=== PATIENT | female | born 1940 | race Caucasian/White ===

== ENCOUNTER 2024-04-17 10:37 | Inpatient (IN) | payer MEDICARE, SELFPAY ==
[2024-04-17] VITALS (73 sets, daily range): BP systolic 37–155; BP diastolic 25–130; BMI 34.2
[2024-04-17 08:12] LABS: Glucose - Point of Care 124 mg/dl (70-99)
[2024-04-17 08:45] LABS: Urine Albumin 3+ (Neg - Trace); Urine Bilirubin Negative (Negative); Urine Character Clear (Clear); Urine Glucose Negative (Negative); Urine Ketone Trace (Negative); Urine Leukocyte 2+ (Negative); Urine Nitrite Negative (Negative); Urine Occult Blood 2+ (Negative); Urine Urobilinogen Negative (Neg - 1+)
[2024-04-17 08:50] LABS: INR 2.22; PT 25.1 Sec (11.4-14.6); Urine Color Yellow
[2024-04-17 08:51] LABS: APTT 46.6 Sec (23.4-35.0)
[2024-04-17 08:57] LABS: % Basophils 0.5 % (0-2); % Immature Granulocytes 0.8 % (0-0.5); % Lymphocytes 5.7 % (20.5-51.1); % Monocytes 6.8 % (1.7-9.3); % Neutrophils 86.2 % (42.2-75.2); Absolute Basophils 0.1 10^3/uL (0-0.2); Absolute Immature Granulocytes 0.1 10^3/uL (0-0.05); Absolute Lymphocytes 0.5 10^3/uL (1.2-3.4); Absolute Monocytes 0.6 10^3/uL (0.1-0.6); Absolute Neutrophils 7.8 10^3/uL (1.4-6.5); Hematocrit 37.1 % (37.0-47.0); Hemoglobin 11.2 g/dL (12.0-16.0); Mean Corp Hgb Conc. 30.2 g/dL (33.0-37.0); Mean Corpuscular Hgb 30.2 pg (27.0-31.0); Mean Platelet Volume 11.8 fL (7.4-10.4); Nucleated Red Blood Cells % 0.2 %; Platelet Count 133 10^3/uL (130-400); Red Blood Cell Count 3.71 10^6/uL (4.20-5.40); Red Cell Dist. Width 24.8 % (11.5-14.5); White Blood Cell Count 9.1 10^3/uL (4.8-10.8)
[2024-04-17] MEDS: NSS 1600 ML IV (09:00)
--- NOTE | 2024-04-17 09:12 | ED.GENMED ---
History of Present Illness
General
Chief Complaint: Blood Sugar Problem
Source: records, ambulance crew and residential
Exam Limitations: altered mental status
Time Seen by Provider: 04/17/24 08:57
Nursing documentation reviewed up to this point in time: agreed with
History of Present Illness
History of Present Illness:
83-year-old female with a past medical history of prior stroke, asthma/COPD with chronic respiratory failure, hypertension, hyperlipidemia, CHF, A-fib who presents to the emergency room from [facility]; presents via EMS for change in
mental status; was noted to have hypoglycemia in the field. Patient is unable to meaningfully participate in history as she is very lethargic and confused. According to EMS report on their arrival to rehab facility patient was lethargic
essentially unresponsive found to have blood glucose of 32 and was given D10 bolus with improvement. I spoke to the residential staff directly to obtain collateral history�apparently she had been there in late February and was discharged home in
early March, unfortunately required return visit to [facility] where she was hospitalized initially with COPD exacerbation apparently complicated by [place] requiring stent. She returned to [facility] 04/02 and since that time
has had multiple issues including case of bilateral lower leg cellulitis requiring treatment with Keflex�she is currently on Keflex and is set to take this antibiotic until 04/22/2024. Apparently since 04/13/2024 her blood pressures have been running
low and residential has been holding blood pressure medications due to this. Apparently on 04/16/2024 she had syncopal event when they stood her up to get her daily weight. Later in the day she had a minor slip from a seated position onto her
bottom no apparent injuries or head strike. Today when they went to do her morning care she was noted to be hypotensive, bradycardic, lethargic and EMS was called to bring her to the hospital. Nursing staff does note that she had a brief visit
home on 04/14/2024 during which she was apparently off of her normal oxygen. Reviewed medication list she does have history of A-fib and is on Eliquis. I spoke to the patient's daughter who is at bedside and she confirmed history as above. She
confirmed that normally patient is awake and oriented x 3 and communicative. Patient does not typically ambulate very well due to obesity and lymphedema.
Review of Systems
Review of Systems
Unable to obtain full review of systems at this time due to: due to acuity
All Other Systems: Not applicable
Phy Exam
Physical Exam
Physical Exam:
General: Lethargic but arousable to voice, groans and tries to respond to simple questions but is only oriented x 1
Head: Normocephalic, atraumatic
Eyes: Conjunctiva normal, pupils equal round and reactive to light by
Throat: Airway intact, handling secretions
Neck: Trachea midline, no JVD noted
Lungs: Crackles at the lung bases; patient is on 3 L of oxygen which is baseline
Heart: Bradycardia with regular rhythm, no murmurs, gallops, or rubs; pacemaker noted left upper chest wall
Abd: Soft, large periumbilical hernia soft and reducible; patient is moaning with abdominal palpation
Neuro: Lethargic but no gross focal deficit�not consistently following commands or responding to questions
Skin: Venous stasis changes in the legs
Extremities: Bilateral lower extremity edema, extremities are cool to the touch
Scores
Heart Failure Risk
Heart Failure Risk Score: Not Applicable
Heart Score for Chest Pain Patients
STEMI patient?: Not applicable
Withdrawal Assessment of Alcohol
Withdrawal Assessment Completed?: Not applicable
Sepsis
Sepsis Screening
Sepsis Assessment: Septic Shock
Sepsis Screening: Lactate >2mmol/L, Lactate >/=4mmol/L, Hypotension, Urine output- <0.5ml/kg/hr for 2 consecutive hours, Worsening O2 Saturation, Sustained Hypotension-SBP <90,MAP<65, or SBP decrease 40mmHg or more and Vasopressor support required
Sepsis Screen
Sepsis Screen: Septic Shock
Date: 04/17/24
Time: 11:34
Course
Orders/Labs/Results
Orders:
Orders
04/17/24 08:21
Electrocardiogram (*1) Urgent
Reason for Study: Other
Other Reason for Exam: CMS
04/17/24 08:22
EKG- Treatment ONCE
04/17/24 08:23
Yuval [Yuval Hugger-Treatment] ONCE
Patient's goal temperature:: 36.1 C
Additional Instructions:: Temperature and skin assessment per unit protocol
04/17/24 08:25
ABO2 Urgent
BBK Wristband Number:
Associate notified that ABO2 has been ordered: RENE
Date: 04/17/24
Time: 08:59
Wood Fence Installer ID: [id number]
Complete Blood Count/With Diff Urgent
Lactic Acid Urgent
PTT Urgent
Prothrombin Time Urgent
Urinalysis Reflex To Culture Urgent
Date Specimen was Collected: 04/17/24
Time Specimen was Collected: 08:21
Urine Microscopic Reflex Cult Urgent
Urine Culture Urgent
AVEL Source: U
Specimen Description:
Date Specimen was Collected: 04/17/24
Time Specimen was Collected: 08:21
04/17/24 08:31
Blood Culture Urgent
AVEL Source: Blood/Venous
Specimen Description:
Blood Culture Urgent
AVEL Source: Blood/Venous
Specimen Description:
Date Specimen was Collected: 04/17/24
Time Specimen was Collected: 08:29
04/17/24 09:06
CT Chest/abd/pel W Iv Cont Urgent
Comment:
Reason For Exam: sepsis, shock, confusion; moans with abd palp
Louise Placement- Treatment ONCE
Reason for insertion: I&O's Critical Care
0.9% Sodium Chloride 1000 ml [Nss] 1,600 ml IV NOW STA
Piperacillin/Tazo 3.375 Gram [Zosyn] 3.375 gram in 50 ml IV NOW
04/17/24 09:07
Vancomycin [Vancocin] 2,000 mg 0.9% Sodium Chloride 500 ml [Nss] 500 ml IV NOW
04/17/24 09:08
CT Head W/o Iv Contrast Urgent
Comment:
Reason For Exam: change in MS
04/17/24 09:10
Hydrocortisone Sod Succinate [Solu-Cortef] 100 mg IV NOW STA
04/17/24 09:11
Interrogate Pacemaker- Treatment ONCE
04/17/24 09:19
NORepinephrine 4 MG/250 ML [Levophed] 4 mg in 250 ml .ROUTE .STK-MED
04/17/24 09:40
NORepinephrine 4 MG/250 ML [Levophed] 4 mg in 250 ml IV NOW
Initial dose in mcg/min, then titrate:: 2
Titrate to keep:: MAP > 65 mmHg
Titrate by mcg/min:: 1-2 mcg/min
Frequency of titrations (minutes):: 5
Maximum dose in ICU in mcg/min:: 30
Maximum dose in IMU in mcg/min:: 8
Maximum dose in IVU in mcg/min:: 4
Begin to taper infusion when:: Remained at goal for 4hrs
Taper by mcg/min:: 1-2 mcg/min
Frequency of taper (minutes) if patient maintains goal:: 30
Taper to off?: Yes
If infusion off & no longer maintaining goal:: Contact Provider
04/17/24 09:43
Type+Screen Urgent
[employer] Wristband Number:
COVID-19 Antigen Urgent
Source: Nasal Swab
Comprehensive Metabolic Panel Urgent
Cortisol, Random Urgent
Free T4 Urgent
NT-proBNP Urgent
TSH Reflex To Free T4 Urgent
Influenza A+B Rapid Molecular Urgent
AVEL Source: Nasal Swab
Specimen Description:
04/17/24 09:44
ASA Classification Routine
Propofol [Diprivan] 100 mg IV NOW STA
04/17/24 09:52
Bedside Glucose- Treatment Q1H
04/17/24 10:05
PHENYLephrine 50 MG/250 ML NSS [Michael-Synephrine] 50 mg in 250 ml .ROUTE .STK-MED
04/17/24 10:07
INFECTIOUS DISEASE CONSULT Routine
Consulting Provider: Giuseppe Martins
Was physician already notified: Yes
Senior Electronics Engineer Consult Routine
Consulting Provider: Ronaldo Ellis
Was physician already notified: Yes
CR Chest Portable - 1 View Urgent
Comment:
Reason For Exam: sepsis
Reason Study Needs to be Portable: Unable to Transport
04/17/24 10:15
PHENYLephrine 50 MG/250 ML NSS [Michael-Synephrine] 50 mg in 250 ml IV PER PROTOCOL
Initial dose in mcg/min, then titrate:: 40
Titrate to keep:: MAP > 65 mmHg
Titrate by mcg/min:: 20 mcg/min
Frequency of titrations (minutes):: 5
Maximum dose in ICU in mcg/min:: 200
Maximum dose in IMU in mcg/min:: 80
Begin to taper infusion when:: Remained at goal for 4hrs
Taper by mcg/min:: 20 mcg/min
Frequency of taper (minutes) if patient maintains goal:: 30
Taper to off?: Yes
If infusion off & no longer maintaining goal:: Contact Provider
04/17/24 10:19
Admit/Transfer Patient As Directed
Co-Sign Provider:
Level of Care: Inpatient admission
Assign to:: ICU
Physician / Group: Carlos/hospitalist
Diagnosis: shock
Reason for Hospitalization: shock
Expected length of stay greater than two midnights?: Yes
ELOS- Estimated Length of Stay in days: 4
I certify the patient meets the requirements for IP care: Yes
PRN Pain Medication Management As Directed
May give lesser potent ordered pain med per pt: Yes
preference::
Protocol:: Medication orders for pain may be administered in a
manner that supports deferring to patient preference
when the pt is:
- Requesting an ordered lesser potent pain medication.
Least to most potent pain medications are defined
as: acetaminophen < NSAID < tramadol < opioids
(morphine, oxycodone, hydromorphone).
- Requesting a lesser dose of the same medication IF
ORDERED.
- Requesting a less intrusive route of administration
if both routes are prescribed by the provider (PO <
IV).
04/17/24 10:20
Code Status As Directed
Resuscitation Status: Full Code
04/17/24 10:23
0.9% Sodium Chloride 500 ml [Nss] 500 ml IV BOLUS
04/17/24 10:25
Echo 2D MMode Color/Doppler Urgent
Reason for Study: shock
CARDIOLOGY CONSULT Routine
Consulting Provider: Marciano Kern
Was physician already notified: Yes
04/17/24 10:26
Records Request [Obtain Records] As Directed
Dates of Information to be Released: last hospital visit from [facility], from Mar 2024
Type of Information Requested: Entire Record
04/17/24 11:15
Dextrose 5%/Water 1000 ml [D5w] 1,000 ml Sodium Bicarbonate 150 meq IV 100 mls/hr
04/17/24 11:27
ABG [Arterial Blood Gas] Urgent
%Oxygen/Room Air: 95
04/17/24 16:00
0.9% Sodium Chloride 500 ml [Nss] 500 ml IV BOLUS
Abnormal Lab Results
04/17/24 04/17/24 04/17/24
08:11 08:25 09:43
RBC 3.71 L 10^6/uL
(4.20-5.40)
Hgb 11.2 L g/dL
(12.0-16.0)
MCV 100.0 H fL
(81.0-99.0)
MCHC 30.2 L g/dL
(33.0-37.0)
RDW 24.8 H %
(11.5-14.5)
MPV 11.8 H fL
(7.4-10.4)
Abs Immat Gran (auto) 0.1 H 10^3/uL
(0-0.05)
Absolute Neuts (auto) 7.8 H 10^3/uL
(1.4-6.5)
Absolute Lymphs (auto) 0.5 L 10^3/uL
(1.2-3.4)
Immature Gran % 0.8 H %
(0-0.5)
Neutrophils % 86.2 H %
(42.2-75.2)
Lymphocytes % 5.7 L %
(20.5-51.1)
PT 25.1 H Sec
(11.4-14.6)
APTT 46.6 H Sec
(23.4-35.0)
Sodium 133 L mmol/L
(135-145)
Potassium 5.7 H mmol/L
(3.5-5.1)
Carbon Dioxide 11 L* mmol/L
(22-30)
BUN 48 H mg/dl
(7-17)
Creatinine 2.5 H mg/dL
(0.6-1.0)
Lactic Acid 10.0 H* mmol/L
(0.7-2.0)
Total Bilirubin 2.4 H mg/dl
(0.2-1.3)
AST 44 H U/L
(14-36)
ALT 36 H U/L
(0-35)
Total Protein 5.6 L g/dl
(6.3-8.2)
Albumin 3.0 L g/dl
(3.5-5.0)
TSH (Reflex) 4.93 H uIU/ml
(0.47-4.68)
Urine Ketones Trace A
(Negative)
Ur Occult Blood Reflex 2+ A
(Negative)
Leukocyte Esterase Rfl 2+ A
(Negative)
Urine WBC (Reflex) >100 A /HPF
(0-5)
Urine Bacteria (Reflex) Many A
(Negative)
Urine Albumin (Reflex) 3+ A
(Neg - Trace)
POC Glucose 124 H mg/dl
(70-99)
04/17/24 08:25
04/17/24 09:43
Vital Signs
Initial and Last Documented VS:
Initial Vital Signs
Temp Pulse Resp BP Pulse Ox
33.2 C L 49 22 111/81 88
04/17/24 08:20 04/17/24 08:20 04/17/24 08:20 04/17/24 08:20 04/17/24 08:20
Last Documented Vital Signs
Temp Pulse Resp BP Pulse Ox
33.2 C L 55 24 99/86 98
04/17/24 08:20 04/17/24 11:06 04/17/24 11:06 04/17/24 11:06 04/17/24 10:35
Procedures
Central Line
Left Femoral:
Indication for procedure:: shock
Procedure completed by: Luis Garcia MD
Consent form signed: No
If no, reason: Emergency procedure
Anesthesia: 1% Lidocaine
Central line lumen: triple
Number of attempts: 1
Central line complications: none
Sterile dressing applied?: Yes
MDM/Problems Addressed
Differential Diagnosis Includes:
Sepsis/septic shock�UTI versus pneumonia versus cellulitis/bacteremia, intra-abdominal infection; hypothyroidism/myxedema coma; adrenal insufficiency (recently treated with steroids)
MDM/Problems Addressed:
83-year-old female with history as documented including recent hospitalization for COPD at [facility], current treatment with Keflex for leg cellulitis presents to the ER with lethargy, hypotension, bradycardia, hypothermia. She was also
hypoglycemic in the field with a glucose of 32 for EMS and required D10. Normoglycemic on arrival. Vitals and exam as above. We establish bilateral large-bore IV access. Labs sent off including a CBC and a CMP, lactate, blood cultures, coags.
Will send thyroid studies, cortisol level. Catheterized for urinalysis. Swab for COVID and flu. Will obtain CT of the head, chest/abdomen/pelvis. Will rewarmed with bear hugger. Sepsis fluid bolus. Broad-spectrum antibiotics. She was recently
treated with steroids for COPD can give dose of hydrocortisone stress dose. Discussed with hospitalist patient will require ICU admission pending workup.
Patient having worsening hypotension added phenylephrine to initial Levophed drip. Left femoral CVC placed as documented in procedure note. Labs were reviewed CBC showed marginal anemia, CMP shows lactate of 10, hyperkalemia, metabolic acidosis,
creatinine 2.5�no baseline available for comparison. Hospital at bedside assessing�will admit to ICU, CT en route to ICU bed. Working diagnosis at this point is septic shock, urinalysis was positive for infection this certainly could represent
source although CT C/A/P pending.
Chronic conditions affecting care:
Obesity, COPD, CHF, atrial fibrillation
*Radiology
Radiology exam reviewed: preliminary read by ED provider and radiology read reviewed
*Pulse Oximetry
Patient hypoxic: yes
*EKG
Interpreted by ED Provider?: Yes
Heart Rate: 50
Rate: bradycardiac
Rhythm: ventricular paced
*Critical Care Note
Total Time (30-74mins, 75-104mins- exclusive of procedures): 51
comment:
Critical care statement: A total of 51 minutes of critical care time was provided for this patient. This includes management of unstable vital signs, evaluation of the patient at bedside, frequent reassessment, discussion with
consultants/hospitalist, and review of pertinent medical records. This time was separate from time utilized to perform any aforementioned documented procedures
Data Reviewed
Source: records, family, ambulance crew and residential
Patient Management
Discussion with other providers: Hospitalist (Discussed with hospitalist) and residential staff (Discussed directly with residential staff)
Escalation/DeEscalation of care consider admission/obs:
ICU admission indicated
ED Attending Note
-
Portions of this chart may have been created with voice recognition software.� Occasional wrong word or��sound alike� substitutions may have occurred due to the inherent limitations of voice recognition software.
Discharge Plan
Departure
Patient Disposition: Admit
Date of Disposition: 04/17/24
Time of Disposition: 10:06
Admit to doctor: Carlos
Presentation/result/management discussed w/ accepting MD/DO: Hospitalist
Discharge Problem:
Septic shock, Hypoglycemia, Hypothermia
Interventions
Interventions:
*Risk Screen - Suicide Last Done: 04/17/24 08:07
*General Assessment Last Done: 04/17/24 08:07
*Neglect/Abuse Screening Last Done: 04/17/24 08:07
*ED COVID-19 Vaccine History Last Done: 04/17/24 10:52
[2024-04-17] MEDS: LEVOPHED 250 IV (09:25)
[2024-04-17 09:46] LABS: Urine White Cell >100 /HPF (0-5)
[2024-04-17 09:47] LABS: Urine Bacteria Many (Negative)
[2024-04-17] MEDS: SOLU-CORTEF 100 MG IV (09:55)
[2024-04-17] MEDS: ZOSYN 50 IV (09:56)
[2024-04-17 10:01] LABS: Acanthocytes 1+; Anisocytosis 2+; Ovalocytes 1+; Poikilocytosis 2+
[2024-04-17 10:05] LABS: AST (SGOT) 44 U/L (14-36); Alkaline Phosphatase 110 U/L (38-126); Blood Urea Nitrogen 48 mg/dl (7-17); Calcium 8.8 mg/dl (8.4-10.2); Carbon Dioxide 11 mmol/L (22-30); Chloride 99 mmol/L (98-107); Estimated Creatinine Clearance 18 ml/min; Glucose 73 mg/dl (70-99); Potassium 5.7 mmol/L (3.5-5.1); Sodium 133 mmol/L (135-145); Total Bilirubin 2.4 mg/dl (0.2-1.3); Total Protein 5.6 g/dl (6.3-8.2)
[2024-04-17 10:05] LABS: Macrocytosis 1+
--- NOTE | 2024-04-17 10:08 | HPS.HSE ---
Family Physician
-
Family Physician: Jose Mckeon, DO
Chief Complaint
-
change in mental status
History of Present Illness
HPI: 83-year-old female, no prior record here, with past medical history of prior stroke, asthma/COPD with chronic hypoxic respiratory failure on 2L NC, hypertension, hyperlipidemia, CHF, A-fib on Eliquis, from [facility] rehab; p/w change in
mental status and was noted hypoglycemia by EMS (blood glucose of 32 and was given D10 bolus with some improvement).
She is currently too confused to provide meaningful history. Apparently baseline AOx3 per daughter at bedside.
History from ER note: Pt apparently had been at SNF in late February and was discharged home in early March. She was unfortunately hospitalized at [facility] for COPD exacerbation initially, hospital course complicated by [place]
requiring stent.
She returned to [facility] on 04/02 and since that time has had multiple issues including bilateral lower leg cellulitis requiring treatment with Keflex� she is currently on Keflex and is set to take this antibiotic until 04/22/2024.
Apparently since 04/13/2024 her blood pressures have been running low, and [facility] has been holding blood pressure medications due to this.
Nursing staff did note that she had a brief visit home on 04/14/2024 during which she was apparently off of her normal oxygen.
Apparently on 04/16/2024, she had syncopal event when they stood her up to get her daily weight. Later in the day, she had a minor slip from a seated position onto her bottom with no apparent injuries or head strike.
On DOA 04/17/2024, when they went to do her morning care, she was noted to be hypotensive, bradycardic, lethargic, and EMS was called.
Medical History
Past Medical History
Past Medical History: Reports Other
Additional Past Medical History:
prior stroke,
asthma/COPD with chronic hypoxic respiratory failure on 2L NC,
hypertension,
hyperlipidemia,
CHF,
A-fib on Eliquis,
Past Surgical History: Reports Other
Additional Past Surgical History:
recent PCI in Mar 2024
Social History
Unable to obtain full social history at this time due to: Acuity
Living: Residential
Family History
Family History: Not pertinent
Allergies / Home Medications
Allergies reflects when Allergies were last updated in [employer].
Home Medications with original date entered in [employer]
Allergy/Medication List:
Medications on admission are unable to be verified or confirmed at this time.
Review of Systems
-
Unable to obtain full review of systems at this time due to: Acuity
Physical Exam
Vital Signs
Vital Signs
Temp Pulse Resp BP Pulse Ox
33.2 C L 63 23 54/43 95
04/17/24 08:20 04/17/24 10:00 04/17/24 10:00 04/17/24 10:00 04/17/24 09:30
Physical Exam
General: Well Developed, Well Nourished, Respiratory Distress and Appears Chronically Ill
HEENT: NormoCephalic, Moist mucous membranes, Atraumatic and Oxygen (7L NC)
Respiratory: Clear and Non Labored Respirations; No Accessory Resp Muscle Use
Cardiac: S1/S2 and Regular Rhythm; No Murmur or Rub
GI: Soft, Non Tender, Non Distended and Normal Bowel Sounds; No Organomegaly
Rectal: Deferred by Provider
Musculoskeletal: No Clubbing and No Cyanosis
Neuro: Awake
Psych: Confused
Laboratory Results
-
04/17/24 08:25
04/17/24 09:43
Laboratory Results
PT 25.1 Sec (11.4-14.6) H 04/17/24 08:25
INR 2.22 04/17/24 08:25
APTT 46.6 Sec (23.4-35.0) H 04/17/24 08:25
Lactic Acid 10.0 mmol/L (0.7-2.0) H* 04/17/24 08:25
Total Bilirubin 2.4 mg/dl (0.2-1.3) H 04/17/24 09:43
AST 44 U/L (14-36) H 04/17/24 09:43
ALT Cancelled 04/17/24 08:25
Alkaline Phosphatase 110 U/L (38-126) 04/17/24 09:43
Data Reviewed
-
Lab Data: Labs Reviewed by me
Impression/Plan
-
HPI: 83-year-old female, no prior record here, with past medical history of prior stroke, asthma/COPD with chronic hypoxic respiratory failure on 2L NC, hypertension, hyperlipidemia, CHF, A-fib on Eliquis, from [facility] rehab; p/w change in
mental status and was noted hypoglycemia by EMS (blood glucose of 32 and was given D10 bolus with some improvement).
She is currently too confused to provide meaningful history. Apparently baseline AOx3 per daughter at bedside.
History from ER note: Pt apparently had been at SNF in late February and was discharged home in early March. She was unfortunately hospitalized at [facility] for COPD exacerbation initially, hospital course complicated by [place]
requiring stent.
She returned to [facility] on 04/02 and since that time has had multiple issues including bilateral lower leg cellulitis requiring treatment with Keflex� she is currently on Keflex and is set to take this antibiotic until 04/22/2024.
Apparently since 04/13/2024 her blood pressures have been running low, and [facility] has been holding blood pressure medications due to this.
Nursing staff did note that she had a brief visit home on 04/14/2024 during which she was apparently off of her normal oxygen.
Apparently on 04/16/2024, she had syncopal event when they stood her up to get her daily weight. Later in the day, she had a minor slip from a seated position onto her bottom with no apparent injuries or head strike.
On DOA 04/17/2024, when they went to do her morning care, she was noted to be hypotensive, bradycardic, lethargic, and EMS was called.
A/P:
# Shock, presumed septic with hypothermia/hypotension/bradycardic
# Lactic acidosis and metabolic acidosis POA
Bicarb drip
Follow panculture
Follow zaragoza CT report (NSS boluses before and after CT)
Pt started with Levo and Michael, cont pressors support, last documented BP 69/38
Cont empiric Abx Cefepime/vancomycin
ID CS
Admit to ICU, Director Independent CS
# Acute metabolic encephalopathy, likely due to above
Monitor MS
Follow CT head
# Elevated LFT possibly shocked liver
# Recent [place] s/p PCI
Card CS
Check echo
Requested record from [facility]
# Likely CARTER vs CKD
SCr 2.5, unknown baseline
trend SCr
bicarb drip with concurrent metabolic acidosis
Renal CS
Louise placed in ED for I/O monitoring
Other medical problems
# prior stroke
# asthma/COPD with chronic hypoxic respiratory failure on 2L NC
# hypertension
Now in shock
# hyperlipidemia
# CHF, unknown type
# A-fib on Eliquis
# Chronic BL lymphedema with chronic ambulatory dysfunction
# Obesity, BMP 34
DVT ppx: HSQ
FC for now until further directed by family, discussed with daughter at bedside
CC time 45 min
[2024-04-17] MEDS: NEO-SYNEPHRINE 250 IV ×2 (10:10→16:38)
[2024-04-17 10:11] LABS: COVID-19 Antigen Negative (Negative); NT-proBNP 6000 pg/ml
[2024-04-17 10:31] LABS: ALT (SGPT) 36 U/L (0-35)
[2024-04-17] MEDS: VANCOCIN 540 MG IV (10:31)
[2024-04-17] MEDS: NSS 500 IV ×2 (10:34→16:36)
[2024-04-17 10:38] LABS: TSH Reflex To Free T4 4.93 uIU/ml (0.47-4.68)
[2024-04-17 11:03] LABS: Free T4 1.75 ng/dl (0.78-2.19)
[2024-04-17 11:08] LABS: Normal RBC Morphology No
[2024-04-17 11:18] LABS: Cortisol, Random 74.4 ug/dl
[2024-04-17 11:36] LABS: O2 Saturation % 99.3 % (94-98); PCO2 20 mmHg (32-35); PO2 186 mmHg (83-108)
[2024-04-17 11:37] LABS: pH 7.15 (7.35-7.45)
--- NOTE | 2024-04-17 11:52 | CON.CAR ---
Consultation
Consultation Request
Date/Time Consultation Requested: April 17, 2024
Date/Time Consultation Performed: April 17, 2024
Requesting Provider: Hospitalist
Performing Provider: Concha
Reason for Consultation: Presumed septic shock
Medical History
-
Chief Complaint: Presumed septic shock
History of Present Illness:
83-year-old patient who is an extremely poor historian. Seen at the bedside during Dr. Garcia starting an intravenous femoral line. She presents with hypothermia, relative bradycardia, hypoglycemia, hypotension and elevated lactic acid. She is
unable to provide her previous cardiac history which was at [facility] although on chest x-ray she is a single-chamber pacemaker in place and is paced on her ECG with underlying atrial fibrillation. Utilizing pacer ID phone laura she is a
92% chance of being a [facility] pacemaker. She also has evidence on chest x-ray and exam of prior sternotomy and carries a history of 'coronary stent 'so presumably prior coronary artery disease. Asked by the hospitalist service to evaluate and
perform echocardiogram to aid in diagnosis. She is on 2 intravenous pressors currently and is not mentating well.
Past Medical History
Past Medical History: Arrhythmias and CAD
Past Surgical History: Cardiac
Social History
Tobacco: Other
Alcohol: None
Drug: None
Personal: Other
Living: Assisted Living
Employment: Not Employed
Family History
Family History: Reviewed & Not Pertinent
Allergies / Home Medications
Allergy/AdvReac Type Severity Reaction Status Date / Time
Sulfa (Sulfonamide Allergy Unknown Verified 04/17/24 08:27
Antibiotics)
Review of Systems
-
Unable to obtain full review of systems at this time due to: Dementia
All other systems: Negative unless noted
Physical Exam
Vital Signs
Temp Pulse Resp BP Pulse Ox
91.8 F L 55 24 99/86 98
04/17/24 08:20 04/17/24 11:06 04/17/24 11:06 04/17/24 11:06 04/17/24 10:35
Lab Results
04/17/24 08:25
04/17/24 09:43
Cea-F-Yocxtbahwcu Pept 6000 pg/ml 04/17/24 09:43
Physical Exam
General: Well Developed, Well Nourished and Respiratory Distress
HEENT: Normocephalic and Anicteric
Respiratory: Rhonchi and Accessory Resp Muscle Use
Cardiac: Regular Rhythm
Breast: Deferred by me
GI: Soft and Non Tender
Rectal: Deferred by Provider
Genito-urinary: No Costovertebral Tender
Musculoskeletal: No Clubbing and No Cyanosis
Skin: Other (peripherally cool)
Neuro: Other (not oriented, moaning)
Psych: Confused
Impression / Plan
-
Impression:
Presumed sepsis
Lactic acidosis
Pressor dependent hypotension
Critically ill
Hypothermia
Bradycardia�she is paced at 50 bpm
Likely permanent atrial fibrillation
History of coronary artery stent per the chart
Likely prior heart surgery
Electrolyte abnormalities
Acute renal failure
Presence of single-chamber pacemaker�presumably [facility]
Prior care at [facility] without records
Recommend:
Will perform echocardiogram to aid in diagnosis and management. It would be important to know what her ejection fraction is.
Once she is stable for anticoagulation would consider this given her atrial fibrillation.
She has a single-chamber pacemaker which is appropriately pacing and we can interrogate this during hospitalization
Treat hypotension as you are
Aim to keep hemoglobin greater than 8
Old records are an absolute necessity in this case
I have no objection to heparinization for stroke prevention for management of critical illness if that is felt to be important from the primary team or consultants
Data Reviewed
-
EKG: Tracing Personally Visualized and interpreted
Radiology: Image Personally Visualized and interpreted
CT Scan: Report Reviewed by me
Medical Tests (Nuc Med, Echo etc): Report Reviewed by me
Labs: Labs Reviewed by me
Old Records: Requested
--- NOTE | 2024-04-17 13:09 | PHA.VAN.IN ---
Assessment
- Assessment
Renal Function: Unknown baseline
Concomitant Antimicrobials: CEFEPIME
Plan
- Plan
Initial / Loading Dose: 2000MG
Maintenance Regimen: PRN BY LEVEL
Monitorin/29 IN AM
Pharmacokinetics Vancomycin I
- -
Patient Age: 83
Patient Sex: Female
Vancomycin Day #: 1
Indication: Other
Requesting Provider: DR. MORENO
Pertinent Antimicrobial Allergies:
SULFA=UNKNOWN
Height / Weight:
Height 5 ft 3 in
Actual Weight 87.5 kg
IBW in k.4
- Vital Signs / Lab Results
Temp Pulse Resp BP Pulse Ox
91.8 F L 57 24 111/74 98
04/17/24 08:20 04/17/24 12:15 04/17/24 12:15 04/17/24 12:15 04/17/24 10:35
Lab Results - Hematology
04/17/24
08:25
WBC 9.1
Lab Results - Chemistry
04/17/24 04/17/24
08:25 09:43
BUN Cancelled 48 H
Creatinine Cancelled 2.5 H
Estimated Creat Clear Cancelled 18
Albumin Cancelled 3.0 L
04/17/24
08:25
Lactic Acid 10.0 H*
Lab Results - Urine
04/17/24
08:25
Urine Nitrite (Reflex) Negative
Leukocyte Esterase Rfl 2+ A
Urine WBC (Reflex) >100 A
Ur Squamous Epith Cells
Urine Bacteria (Reflex) Many A
Microbiology Results
04/17/24 09:43 Influenza Types A & B (MELLO) - Final
Nasal Swab Negative for Influenza A & B, NAAT
Negative results must be combined with clinical observations
and patient history.
Nucleic Acid Amplification test (NAAT)performed on the
[employer] NOW platform.
[2024-04-17] MEDS: DEXTROSE 50% SYRINGE 12.5 GRAMS IV (13:15)
[2024-04-17] MEDS: SODIUM BICARBONATE 1150 MEQ IV ×2 (13:17→23:38)
[2024-04-17 13:20] LABS: Glucose - Point of Care 61 mg/dl (70-99)
--- NOTE | 2024-04-17 13:43 | CON.INTV ---
Consultation
Consultation Request
Date/Time Consultation Requested: 04/17
Date/Time Consultation Performed: 04/17
Reason for Consultation: Critical care
Medical History
-
History of Present Illness:
History obtained from the chart as patient is currently intubated and sedated. History also obtained from son at the bedside. 83-year-old female long term resident with history of stroke, asthma, hypertension, heart failure, atrial fibrillation
who presents with mental status changes. Apparently patient has had recent hospital at [facility] for COPD exacerbation, [place] with stent. Patient has had issues with lower extremity cellulitis on antibiotics and intermittent low blood sugar and
low blood pressure over the last few days. Patient was noted to be lethargic, EMS was called. Upon arrival to [facility], temperature 33.2 �C, pulse 49, breathing at 22, blood pressure 111/81, 88%. Blood sugar was normal. COVID, flu
negative. Patient required, was given antibiotics. Required placement of central line in the ED, pressors, IV fluids, admitted to ICU for further management
Son states that since patient had a stroke in April 2023 with left-sided weakness, followed by a fall with left shoulder injury, she has been slowly declining. She does walk slowly with a walker but has had history of falls, most recently at
rehab facility.
.
PMH: Hypertension, hyperlipidemia, history of COPD/asthma, atrial fibrillation, heart failure with pacemaker, abdominal aortic aneurysm with graft, history of renal insufficiency requiring dialysis in the past, coronary disease, stroke, recent [place]
with stent at [facility] February 2024
Past Medical History
Past Medical History: None (See above)
Past Surgical History: None (See above)
Social History
Tobacco: Non-smoker
Alcohol: None
Drug: None
Living: [facility]
Family History
Family History: Other
Allergies / Home Medications
Allergies
Allergy/AdvReac Type Severity Reaction Status Date / Time
Sulfa (Sulfonamide Allergy Unknown Verified 04/17/24 08:27
Antibiotics)
Home Medications
�Medication �Instructions �Recorded �Confirmed �Last Taken �Type
Saccharomyces boulardii 250 mg 250 mg PO DAILY 04/17/24 04/17/24 Unknown History
capsule (Florastor)
acetaminophen 325 mg tablet 650 mg PO Q6HPRN PRN mild pain 04/17/24 04/17/24 Unknown History
(Tylenol)
albuterol sulfate 2.5 mg/3 mL 2.5 mg inhalation R Q6HPRN PRN sob 04/17/24 04/17/24 Unknown History
(0.083 %) solution for nebulization
alprazolam 0.25 mg tablet (Xanax) 0.25 mg PO HS 04/17/24 04/17/24 Unknown History
apixaban 2.5 mg tablet (Eliquis) 2.5 mg PO BID 04/17/24 04/17/24 Unknown History
atorvastatin 40 mg tablet (Lipitor) 40 mg PO HS 04/17/24 04/17/24 Unknown History
bisacodyl 10 mg rectal suppository 10 mg HI DAILYPRN PRN if no bm 04/17/24 04/17/24 Unknown History
(Dulcolax (bisacodyl)) aftr mom
cephalexin 500 mg capsule 500 mg PO QID 04/17/24 04/17/24 Unknown History
diltiazem HCl 180 mg 180 mg PO DAILY 04/17/24 04/17/24 Unknown History
capsule,extended release 24 hr
(Cardizem CD)
docusate sodium 100 mg capsule 100 mg PO HS 04/17/24 04/17/24 Unknown History
(Colace)
ferrous sulfate 325 mg (65 mg 325 mg PO DAILY 04/17/24 04/17/24 Unknown History
iron) tablet
fluticasone furoate 50 1 ea inhalation R DAILY 04/17/24 04/17/24 Unknown History
mcg-vilanterol 25 mcg/dose
inhalation powder (Breo Ellipta)
furosemide 40 mg tablet (Lasix) 40 mg PO DAILY 04/17/24 04/17/24 Unknown History
gabapentin 100 mg capsule 200 mg PO TID 04/17/24 04/17/24 Unknown History
hydralazine 25 mg tablet 25 mg PO TID 04/17/24 04/17/24 Unknown History
losartan 25 mg tablet 25 mg PO DAILY 04/17/24 04/17/24 Unknown History
magnesium hydroxide 400 mg/5 mL 2,400 mg PO DAILYPRN PRN if no bm 04/17/24 04/17/24 Unknown History
oral suspension (Milk of Magnesia) by 3rd day
metoprolol succinate 100 mg 150 mg PO DAILY 04/17/24 04/17/24 Unknown History
tablet,extended release 24 hr
(Toprol XL)
pantoprazole 40 mg tablet,delayed 40 mg PO DAILY 04/17/24 04/17/24 Unknown History
release (Protonix)
polyethylene glycol 3350 17 gram 17 g PO DAILY 04/17/24 04/17/24 Unknown History
oral powder packet (Miralax)
sennosides 8.6 mg tablet (senna) 8.6 mg PO HS 04/17/24 04/17/24 Unknown History
sodium phosphates 19 gram-7 118 ml HI DAILYPRN PRN if no bm 04/17/24 04/17/24 Unknown History
gram/118 mL enema (Fleet Enema) aftr dulcolax
tramadol 25 mg tablet 25 mg PO BIDPRN PRN moderate pains 04/17/24 04/17/24 Unknown History
Review of Systems
-
Unable to Obtain full review of systems at this time due to: Patient Intubation
History Source: Family
Vitals / Labs / Diagnostic Testing
Vital Signs
Temp Pulse Resp BP Pulse Ox
91.8 F L 57 24 111/74 98
04/17/24 08:20 04/17/24 12:15 04/17/24 12:15 04/17/24 12:15 04/17/24 10:35
Lab Data
04/17/24 08:25
04/17/24 09:43
Laboratory Results
04/17/24 04/17/24
08:25 11:27
PT 25.1 H
INR 2.22
APTT 46.6 H
pH 7.15 L*
pCO2 20 L
pO2 186 H
HCO3 7.0 L*
O2 Delivery Level
Microbiology
04/17/24 09:43 Nasal Swab Influenza Types A & B (MELLO) - Final
Negative for Influenza A & B, NAAT
Negative results must be combined with clinical observations
and patient history.
Nucleic Acid Amplification test (NAAT)performed on the
[employer] platform.
Diagnostic Testing:
Physical Exam
-
HEENT: Normocephalic, Anicteric, Other (Left femoral central line) and Other (Large neck)
Cardiovascular: S1/S2, Regular Rhythm and Murmur
Respiratory: Wheeze (n), Rales (n), Rhonchi (n) and Other (Decreased breath sounds)
GI: Soft, Non Distended (Obese) and Non Tender
Neurology: Awake, Alert and No Motor Deficits (Moving all extremities, generally weak)
Skin: Other (Lower extremity bilateral erythema, cellulitis, 1+ edema)
General: Comfortable
Assessment
-
83-year-old female long term resident with complex medical history including hypertension, coronary disease with stent, AAA repair, atrial fibrillation/pacemaker, history of heart failure who presents with hypoglycemia, hypotension, suspected
sepsis and mental status changes. Patient required IV fluids, pressors, antibiotics, admitted to ICU for further management
Hypotension, sepsis
Possibly secondary to UTI
Hypothermia
Bradycardia
Acute renal insufficiency
Hyponatremia/hyperkalemia
Elevated lactate, metabolic acidosis
Conditions present prior to admission
History of coronary disease/PCI
[facility] hospitalization March 2024
AAA repair
Atrial fibrillation, pacemaker
History of heart failure
History of stroke April 2023
History of falls
shelter resident
Plan/recommendations
At this time, patient remains critically ill
Salient features include significant hypothermia, hypotension. Although chest x-ray suggest possible right lower lobe pneumonia, this is not confirmed on her CT imaging. She may have a mild bilateral patchy infiltrate per my review
ABG consistent with severe metabolic acidemia, elevated lactate noted
Random cortisol, free T4 normal
Urinalysis suggest possible UTI
Moving forward
Continue with IV fluids. Would give additional IV fluid boluses
Hypoglycemia noted. Will transition to D5 normal
Continue with phenylephrine, norepinephrine. Maintain maps greater than 65
Poor pulse oximetry Pleth. ABG noted
Repeat ABG in a.m.
Remains on broad-spectrum antibiotics, cefepime/vancomycin
DVT prophylaxis: Subcutaneous heparin
GI prophylaxis: Protonix
Reviewed at length with critical care nursing, respiratory care, primary service, ED
Updated son at bedside
When asked about advanced directives, son states that mother would not want life support such as ventilation, CPR. I encouraged that he discuss this with her and family members
Presently, patient is full code
TCCT 45 min
[2024-04-17 13:52] LABS: Glucose - Point of Care 84 mg/dl (70-99)
--- NOTE | 2024-04-17 14:16 | W.CON.NEPH ---
Consultation
-
Date/Time Consultation Requested: 04/17/2024 12 PM
Date/Time Consultation Performed: 04/17/2024 2 PM
Requesting Provider: Dr. Gonzalez
Performing Provider: Dr. Feliciano
Reason for Consultation: CARTER
Medical History
-
Chief Complaint: Confusion
History of Present Illness:
This is an 83-year-old female who has significant hypertension on a multidrug regimen, atrial fibrillation on anticoagulation with Eliquis therapy, COPD with [facility] She had had
several hospitalizations for various issues including COPD, coronary disease, weakness. She has had multiple stays in subacute rehab. Most recently she had suspected cellulitis and was treated with antibiotics. Last week he was noted that her
blood pressures were running low and she then had a syncopal event. Given the worsening weakness and lethargy she was sent to emergency room. Here she was found to be hypotensive requiring pressor therapy as well as hypothermic. Creatinine was
noted to be elevated 2.5 without known baseline and presumed to be CARTER. Here she also had hyperkalemia and hyponatremia. She was placed on pressors and sent to the ICU. She is currently critically ill
Past Medical History
Hypertension, COPD, asthma, hyperlipidemia, A-fib, pacemaker, heart failure preserved ejection fraction, ventral hernia, abdominal aortic aneurysm with endograft, CARTER requiring temporary dialysis after abdominal aortic aneurysm repair, coronary
disease, stroke
Social History
Tobacco: Non-Smoker
Alcohol: None
Family History
Family History: Not Pertinent
Allergies / Home Medications
Allergy/AdvReac Type Severity Reaction Status Date / Time
Sulfa (Sulfonamide Allergy Unknown Verified 04/17/24 08:27
Antibiotics)
�Medication �Instructions �Recorded �Confirmed �Type
Saccharomyces boulardii 250 mg 250 mg PO DAILY 04/17/24 04/17/24 History
capsule (Florastor)
acetaminophen 325 mg tablet 650 mg PO Q6HPRN PRN mild pain 04/17/24 04/17/24 History
(Tylenol)
albuterol sulfate 2.5 mg/3 mL 2.5 mg inhalation R Q6HPRN PRN sob 04/17/24 04/17/24 History
(0.083 %) solution for nebulization
alprazolam 0.25 mg tablet (Xanax) 0.25 mg PO HS 04/17/24 04/17/24 History
apixaban 2.5 mg tablet (Eliquis) 2.5 mg PO BID 04/17/24 04/17/24 History
atorvastatin 40 mg tablet (Lipitor) 40 mg PO HS 04/17/24 04/17/24 History
bisacodyl 10 mg rectal suppository 10 mg WA DAILYPRN PRN if no bm 04/17/24 04/17/24 History
(Dulcolax (bisacodyl)) aftr mom
cephalexin 500 mg capsule 500 mg PO QID 04/17/24 04/17/24 History
diltiazem HCl 180 mg 180 mg PO DAILY 04/17/24 04/17/24 History
capsule,extended release 24 hr
(Cardizem CD)
docusate sodium 100 mg capsule 100 mg PO HS 04/17/24 04/17/24 History
(Colace)
ferrous sulfate 325 mg (65 mg 325 mg PO DAILY 04/17/24 04/17/24 History
iron) tablet
fluticasone furoate 50 1 ea inhalation R DAILY 04/17/24 04/17/24 History
mcg-vilanterol 25 mcg/dose
inhalation powder (Breo Ellipta)
furosemide 40 mg tablet (Lasix) 40 mg PO DAILY 04/17/24 04/17/24 History
gabapentin 100 mg capsule 200 mg PO TID 04/17/24 04/17/24 History
hydralazine 25 mg tablet 25 mg PO TID 04/17/24 04/17/24 History
losartan 25 mg tablet 25 mg PO DAILY 04/17/24 04/17/24 History
magnesium hydroxide 400 mg/5 mL 2,400 mg PO DAILYPRN PRN if no bm 04/17/24 04/17/24 History
oral suspension (Milk of Magnesia) by 3rd day
metoprolol succinate 100 mg 150 mg PO DAILY 04/17/24 04/17/24 History
tablet,extended release 24 hr
(Toprol XL)
pantoprazole 40 mg tablet,delayed 40 mg PO DAILY 04/17/24 04/17/24 History
release (Protonix)
polyethylene glycol 3350 17 gram 17 g PO DAILY 04/17/24 04/17/24 History
oral powder packet (Miralax)
sennosides 8.6 mg tablet (senna) 8.6 mg PO HS 04/17/24 04/17/24 History
sodium phosphates 19 gram-7 118 ml WA DAILYPRN PRN if no bm 04/17/24 04/17/24 History
gram/118 mL enema (Fleet Enema) aftr dulcolax
tramadol 25 mg tablet 25 mg PO BIDPRN PRN moderate pains 04/17/24 04/17/24 History
Review of Systems
-
No chest pain. No shortness of breath.
All other systems: Negative unless noted
Physical Exam
Vital Signs
Vital Signs
Temp Pulse Resp BP Pulse Ox
91.8 F L 57 24 111/74 98
04/17/24 08:20 04/17/24 12:15 04/17/24 12:15 04/17/24 12:15 04/17/24 10:35
Lab Results
WBC 9.1 10^3/uL (4.8-10.8) 04/17/24 08:25
RBC 3.71 10^6/uL (4.20-5.40) L 04/17/24 08:25
Hgb 11.2 g/dL (12.0-16.0) L 04/17/24 08:25
Hct 37.1 % (37.0-47.0) 04/17/24 08:25
Plt Count 133 10^3/uL (130-400) 04/17/24 08:25
Sodium 133 mmol/L (135-145) L 04/17/24 09:43
Potassium 5.7 mmol/L (3.5-5.1) H 04/17/24 09:43
Chloride 99 mmol/L (98-107) 04/17/24 09:43
Carbon Dioxide 11 mmol/L (22-30) L* 04/17/24 09:43
BUN 48 mg/dl (7-17) H 04/17/24 09:43
Creatinine 2.5 mg/dL (0.6-1.0) H 04/17/24 09:43
eGFR 18.50 04/17/24 09:43
Glucose 73 mg/dl (70-99) 04/17/24 09:43
Calcium 8.8 mg/dl (8.4-10.2) 04/17/24 09:43
Ttp-D-Surwdnmafoy Pept 6000 pg/ml 04/17/24 09:43
Albumin 3.0 g/dl (3.5-5.0) L 04/17/24 09:43
Laboratory Tests
04/17/24 04/17/24
08:25 09:43
Lactic Acid 10.0 H*
Random Cortisol 74.4
CT A/P with IV contrast 04/17/24
IMPRESSION:
Evaluation is somewhat limited secondary to motion artifact.
Cardiomegaly with small, right greater than left bilateral pleural effusions with adjacent atelectasis. Additionally there is generalized diffuse body wall edema with small volume free fluid in the abdomen.
The gallbladder is mildly distended with small volume adjacent fluid. Findings may be related to chronic illness/fasting state. If there is high clinical suspicion for acute cholecystitis a dedicated ultrasound may be considered.
Aortobiiliac endograft with the excluded infrarenal aneurysm sac measuring 7.3 cm. There is extensive atherosclerotic calcifications including the celiac and superior mesenteric arteries.
There is generalized mild wall thickness throughout the colon which may be secondary to underdistention although colitis could appear similar.
ventral hernia noted
Physical Exam
Patient is awake alert oriented and in no distress. Mood and affect were pleasant, insight and judgment were fair at best. Pupils are equal round and reactive to light, extraocular movements are intact, sclera were anicteric. Hearing was normal,
ears and nose are intact. Oropharynx was clear. Neck was supple with trachea midline and no thyromegaly. Heart was regular rate and rhythm without rubs. Lower extremities with 3+ edema. Lungs were clear to auscultation bilaterally and with normal
excursion. Abdomen was soft, nontender, with normal active bowel sounds, and no hepatosplenomegaly. Skin was without rash and with normal turgor. livedo in the lower legs and dusky toes noted
Data Reviewed
-
Radiology: Image Personally Visualized and interpreted (Chest x-ray on 04/17/2024 by my reading shows cardiomegaly, low lung volumes, mild vascular prominence)
CT Scan: Report Reviewed by me
Medical Tests (Nuc Med, Echo etc): Image Personally Visualized and interpreted (EKG on 04/09/2024 by read shows V paced rhythm) and Report Reviewed by me (Echocardiogram on 04/09/2024 shows 60% ejection fraction, severe TR, severe dilation of right
ventricle and right atrium, moderate MR)
Labs: Labs Reviewed by me
Old Records: Requested
Assessment/Plan
-
Assessment
Hypotension
COPD
CARTER
hyponatremia
hyperkalemia
metabolic acidosis
lactic acidosis
CAD/PCI
AAA repair
edema
Afib/PPM
severe TR
HFpEF
ventral hernia
Plan
keep MAP > 65
follow BMP
follow lactate
IVF with bicarb
treat K medically
check urine studies
concentrate pressors
abx per ID
critical care time 45 minutes
--- NOTE | 2024-04-17 14:20 | CON.ID ---
Consultation
-
Date/Time Consultation Requested: 04/17/2024 1007
Date/Time Consultation Performed: 04/17/2024 1419
Requesting Provider: Dr. Gonzalez
Performing Provider: Dr. Martins
Reason for Consultation: Clinical sepsis
Chief Complaint / Past History
History of Present Illness
Lauren Enciso is an 83-year-old female being evaluated at the request of Dr. Gonzalez in regards to clinical sepsis. History is obtained from chart review, along with history obtained from the patient's son who was present at the bedside.
The patient has a history of CVA in April 2023. Following a brief stay in rehab, she moved in with her son. Since that time she has had multiple admissions to [facility] for exacerbation of COPD. Following these admissions she is transiently at
[facility], and then evidently returns to the son's residence. Most recently she was admitted to [facility] for another exacerbation of COPD. She was then again sent to [place]. Yesterday the son received a call that she had
fallen in the bathroom, but the facility felt that she was okay and she remained at the facility. This a.m. she was found during morning rounds to be hypotensive, bradycardic and lethargic. EMS was called and the patient was transported emergently
to [facility]. The son reports that she recently has been on antibiotics in the treatment of presumed bilateral lower extremity cellulitis.
In the emergency room, she was found to be hypotensive and hypothermic. She has been started on pressor therapy. Empiric antibiotics have also been started, and Infectious Diseases is asked to comment on further antimicrobial management.
Past History
Additional Past Medical History:
Hx CVA
Asthma
COPD chronic respiratory failure; maintained on 2 L O2 nasal cannula
HTN
Dyslipidemia
CHF
A-fib; on Eliquis
Umbilical hernia
LE lymphedema
Additional Past Surgical History:
PCI with stenting (03/2024)
CABG (~2015)
PPM placement
AAA repair
Allergy History:
Sulfa (Sulfonamide Antibiotics) Allergy (Verified 04/17/24 08:27)
Unknown
Medications Reviewed: Yes
Current Antibiotics:
Vancomycin (dosed per pharmacy)
Cefepime 1 g IV every 12 hours
Social History
Tobacco: Non-Smoker
Alcohol: None
Drug: None
Personal: Single
Living: With Family
Employment: Not Employed
Family History
Family History: Not Pertinent
Review of Systems
Vital Signs
Temp Pulse Resp BP Pulse Ox
91.8 F L 57 24 111/74 98
04/17/24 08:20 04/17/24 12:15 04/17/24 12:15 04/17/24 12:15 04/17/24 10:35
Physical Exam
Physical Exam
Constitutional: Acutely Ill, Chronically Ill, Non-toxic and Obese
Eyes: Pupils Equal, Pupils Round, No Conjunctival Hemorrhage and Sclera Anicteric
Oral: No Thrush and No Ulcers
Cardiovascular: Regular Rate and S1/S2; Negative S3/S4
Pulmonary: Coarse and Non Labored; Negative Rhonchi
Gastrointestinal: Soft, Non Tender, Non Distended and Other (Umbilical hernia present. Easily reducible.)
Extremities: Edema (4+ bilateral lower extremities), Erythema (Bilateral lower extremities, without significant warmth.), Pulses and Venous Insufficiency
Skin: Warm and Dry
Neurological: Awake
Psychological: Calm and Confused
Lab / Diagnostic Study Results
04/17/24 08:25
04/17/24 09:43
Abs Immat Gran (auto) 0.1 10^3/uL (0-0.05) H 04/17/24 08:25
Absolute Neuts (auto) 7.8 10^3/uL (1.4-6.5) H 04/17/24 08:25
Absolute Lymphs (auto) 0.5 10^3/uL (1.2-3.4) L 04/17/24 08:25
Absolute Monos (auto) 0.6 10^3/uL (0.1-0.6) 04/17/24 08:25
Absolute Basos (auto) 0.1 10^3/uL (0-0.2) 04/17/24 08:25
Immature Gran % 0.8 % (0-0.5) H 04/17/24 08:25
Neutrophils % 86.2 % (42.2-75.2) H 04/17/24 08:25
Lymphocytes % 5.7 % (20.5-51.1) L 04/17/24 08:25
Monocytes % 6.8 % (1.7-9.3) 04/17/24 08:25
Eosinophils % 0.0 % (0-6) 04/17/24 08:25
Basophils % 0.5 % (0-2) 04/17/24 08:25
PT 25.1 Sec (11.4-14.6) H 04/17/24 08:25
INR 2.22 04/17/24 08:25
Lactic Acid 10.0 mmol/L (0.7-2.0) H* 04/17/24 08:25
Ur Squamous Epith Cells /LPF (Few) 04/17/24 08:25
Microbiology Results
Micro:
04/17/24 09:43 Influenza Types A & B (MELLO) - Final
Nasal Swab Negative for Influenza A & B, NAAT
Negative results must be combined with clinical observations
and patient history.
Nucleic Acid Amplification test (NAAT)performed on the
[email or web address] platform.
04/17/24 08:25 Urine Culture - Pending
Urine
04/17/24 08:31 Blood Culture - Pending
Blood/Venous
04/17/24 08:31 Blood Culture - Pending
Blood/Venous
Imaging:
04/17/2024 CXR (portable): Low lung volumes noted. Mild bibasilar airspace opacities. No significant pleural effusion and no visualized pneumothorax noted.
04/17/2024 CT (C/A/P): Cardiomegaly noted. Generalized diffuse body wall edema with small volume free fluid in the abdomen. Gallbladder is mildly distended.
Assessment / Plan
Clinical sepsis
Normal white count with left shift
Profound lactic acidosis
Renal insufficiency
Elevated bilirubin
Transaminitis
Pyuria
Hx CVA
Asthma
COPD chronic respiratory failure; maintained on 2 L O2 nasal cannula
HTN
Dyslipidemia
CHF
A-fib; on Eliquis
Umbilical hernia
LE lymphedema
Recommendations:
Continue with empiric vancomycin and cefepime.
Cefepime dose is appropriate for current estimated creatinine clearance.
Vanco to be dosed by levels.
Monitor white count and temperature curve.
Continue with compressive modalities to the bilateral lower extremities.
Await further culture data to guide further antimicrobial selection and potential de-escalation.
Patient currently critically ill in intensive care unit on pressor therapy. Prognosis guarded.
[2024-04-17 14:25] LABS: Glucose - Point of Care 111 mg/dl (70-99)
[2024-04-17 14:33] LABS: Lactic Acid 10.9 mmol/L (0.7-2.0)
[2024-04-17] MEDS: STERILE WATER FOR INJECTION 10 ML IV (15:02)
[2024-04-17] MEDS: MAXIPIME 1000 MG IV (15:03)
[2024-04-17] MEDS: PROTONIX IV 40 MG IV (15:03)
[2024-04-17] MEDS: NSS (PRESERVATIVE FREE) 10 ML IV (15:03)
--- NOTE | 2024-04-17 16:00 | PTCARENOTE ---
pt arrived from ED at 1300 , pt alert and confused , restless, temp 91 core temp , Yuval Huggar in place v paced on monitor , underlying rhythm is afib , BP on arrival 113/61 and dropped to 78/50 , her Neosynephrine and Levophed increased for goal
map of 65, Louise cath with no urine output , bilateral hands and feet dusky and cool , unable to get 02 sat monitor for reading , she is on 6L NC , lungs are course throughout , pt noted to have a rust color liquid from rectum moderate , plan for
repeat HH later today , lactate level of 10 , creatinine 2.5 , pt son and daughter at bedside , pt son Ambrose is poa [phone] , goals of care were discussed with pt son by ED staff and Dr Ellis , pt is full code at current time
[2024-04-17 17:49] LABS: Glucose - Point of Care 97 mg/dl (70-99)
[2024-04-17 17:50] LABS: Hemoglobin 9.9 g/dL (12.0-16.0)
[2024-04-17 18:06] LABS: Lactic Acid 11.7 mmol/L (0.7-2.0)
[2024-04-17 18:14] LABS: ALT (SGPT) 32 U/L (0-35); AST (SGOT) 73 U/L (14-36); Albumin 2.8 g/dl (3.5-5.0); Alkaline Phosphatase 108 U/L (38-126); Blood Urea Nitrogen 44 mg/dl (7-17); Calcium 7.8 mg/dl (8.4-10.2); Carbon Dioxide 10 mmol/L (22-30); Chloride 96 mmol/L (98-107); Estimated Creatinine Clearance 18 ml/min; Glucose 184 mg/dl (70-99); Potassium 5.1 mmol/L (3.5-5.1); Sodium 130 mmol/L (135-145); Total Bilirubin 2.1 mg/dl (0.2-1.3); Total Protein 5.2 g/dl (6.3-8.2)
[2024-04-17 18:22] LABS: Urine Sodium 117 mmol/L (30-90)
[2024-04-17] MEDS: PITRESSIN 100 IV (18:58)
[2024-04-17] MEDS: SODIUM BICARBONATE 50 MEQ IV ×6 (18:58→22:43)
[2024-04-17] MEDS: LEVOPHED 258 MG IV ×2 (19:32→23:38)
--- NOTE | 2024-04-17 19:36 | PTCARENOTE ---
pt less agitated and now drowsy , repeat labs given to Dr Feliciano and critical care DRUG ENFORCEMENT AGENT Vee Tyson , lactate up to 11.7 , carbon dioxide 10 , creatinine 2.5 , her blood pressure maps down to 61 , she was given x 2 of sodium bicarb push and started
on vasopressin gtt , pt is to receive albumin 25 grams Q 8 hours , intake 1721 / 4ml out , all physicians aware of I & 0 and recent labs
[2024-04-17] MEDS: HEPARIN 5000 UNITS SC (19:37)
[2024-04-17] MEDS: FLEXBUMIN 100 IV (19:37)
--- NOTE | 2024-04-17 20:35 | W.PN.UPDATE ---
Update Note
Progress Note Update
1829- Dr. Feliciano, vending machine attendant, gave recommendations to give albumin and bicarb x2 amp pushes.
2034- Called to update patient's son Ambrose Enciso, patient SBP sustained 60s on 3 vasopressors. Patient having labored breathing, agonal breaths/gasping due to severe metabolic acidosis. Additional bicarb amp x2 pushes given. Maxed on levophed
gtt, symone gtt, and vasopressin gtts. Reviewed code status with son, answered all questions, multi organ failure with overall ominous prognosis and continued hypotension despite intervention, he agreed to change code status to DNR/DNI.
2044- Patient's daughter called and requested update as well. Both son and daughter plan to come to the hospital to be by the patient's bedside tonight.
[2024-04-17] MEDS: NEO-SYNEPHRINE 1% 260 MG IV (21:38)
--- NOTE | 2024-04-17 22:14 | PTCARENOTE ---
Pt received anxious and agitated. Calling out. MAP< 65. Michael titrated to max. Levo and michael double concentrated. 2 amps bicarb given. O2 sat unobtainable. Per son sat has been unobtainable at home as well. 100% NRB added to nc. No urine output noted.
Update given to family by me and BRINE ROOM LABORER. Pt now DNR-purple bracelet applied. Labs sent. Will continue to monitor closely.
[2024-04-17 22:29] LABS: Lactic Acid 11.9 mmol/L (0.7-2.0)
[2024-04-17 22:34] LABS: Blood Urea Nitrogen 45 mg/dl (7-17); Calcium 7.8 mg/dl (8.4-10.2); Carbon Dioxide 13 mmol/L (22-30); Chloride 95 mmol/L (98-107); Estimated Creatinine Clearance 17 ml/min; Glucose 91 mg/dl (70-99); Potassium 5.2 mmol/L (3.5-5.1); Sodium 134 mmol/L (135-145); eGFR 17.65
[2024-04-17 22:57] LABS: ALT (SGPT) 118 U/L (0-35); AST (SGOT) 368 U/L (14-36); Albumin 3.5 g/dl (3.5-5.0); Alkaline Phosphatase 98 U/L (38-126); Direct Bilirubin 1.6 mg/dl (0.0-0.4); Total Bilirubin 2.2 mg/dl (0.2-1.3); Total Protein 5.7 g/dl (6.3-8.2)
[2024-04-18] VITALS (44 sets, daily range): BP systolic 38–127; BP diastolic 10–97; BMI 37.2
--- NOTE | 2024-04-18 00:44 | PTCARENOTE ---
Family at bedside. Update given. Pt continues to have no urine output. Extremities mottled. Still cannot get O2 sat. Core temp 97.2 Yuval huggar turned off. Continue to monitor closely.
[2024-04-18] MEDS: STERILE WATER FOR INJECTION 10 ML IV (01:39)
[2024-04-18] MEDS: MAXIPIME 1000 MG IV (01:39)
[2024-04-18] MEDS: ATIVAN 0.25 MG IV (02:01)
[2024-04-18] MEDS: NSS (PRESERVATIVE FREE) 0.125 ML IV (02:01)
[2024-04-18] MEDS: PITRESSIN 100 IV ×2 (02:26→10:27)
[2024-04-18] MEDS: FLEXBUMIN 100 IV (03:18)
[2024-04-18 03:24] LABS: Venous Blood Gas B.E. -12.1 mmol/L (-4 to +4); Venous Blood Gas O2 Sat % 85.3 %; Venous Blood Gas pCO2 62 mmHg (35-48); Venous Blood Gas pO2 63 mmHg (30-50)
[2024-04-18 03:27] LABS: Venous Blood Gas pH 7.07 (7.32-7.43)
[2024-04-18 03:44] LABS: INR 3.73; PT 37.2 Sec (11.4-14.6)
[2024-04-18 03:45] LABS: APTT 57.8 Sec (23.4-35.0)
[2024-04-18 03:56] LABS: ALT (SGPT) 388 U/L (0-35); Albumin 3.2 g/dl (3.5-5.0); Alkaline Phosphatase 108 U/L (38-126); Blood Urea Nitrogen 47 mg/dl (7-17); Calcium 7.6 mg/dl (8.4-10.2); Carbon Dioxide 20 mmol/L (22-30); Chloride 95 mmol/L (98-107); Direct Bilirubin 1.8 mg/dl (0.0-0.4); Estimated Creatinine Clearance 16 ml/min; Glucose 76 mg/dl (70-99); Lactic Acid 11.8 mmol/L (0.7-2.0); Magnesium 2.1 mg/dl (1.6-2.3); Phosphorus 8.1 mg/dl (2.5-4.5); Potassium 5.3 mmol/L (3.5-5.1); Sodium 135 mmol/L (135-145); Total Bilirubin 2.3 mg/dl (0.2-1.3); Total Protein 5.5 g/dl (6.3-8.2); eGFR 16.15
[2024-04-18 04:00] LABS: Vancomycin Random 19.2 ug/ml
[2024-04-18 04:13] LABS: AST (SGOT) 1164 U/L (14-36)
[2024-04-18 04:18] LABS: % Basophils 0.3 % (0-2); % Eosinophils 3.1 % (0-6); % Immature Granulocytes 2.6 % (0-0.5); % Lymphocytes 3.7 % (20.5-51.1); % Monocytes 9.7 % (1.7-9.3); % Neutrophils 80.6 % (42.2-75.2); Absolute Eosinophils 0.4 10^3/uL (0-0.7); Absolute Immature Granulocytes 0.4 10^3/uL (0-0.05); Absolute Lymphocytes 0.5 10^3/uL (1.2-3.4); Absolute Monocytes 1.3 10^3/uL (0.1-0.6); Hematocrit 33.1 % (37.0-47.0); Hemoglobin 9.8 g/dL (12.0-16.0); Mean Corp Hgb Conc. 29.6 g/dL (33.0-37.0); Mean Corpuscular Hgb 30.6 pg (27.0-31.0); Mean Corpuscular Volume 103.4 fL (81.0-99.0); Mean Platelet Volume 11.9 fL (7.4-10.4); Platelet Count 126 10^3/uL (130-400); Red Cell Dist. Width 24.7 % (11.5-14.5); White Blood Cell Count 13.7 10^3/uL (4.8-10.8)
--- NOTE | 2024-04-18 04:35 | PTCARENOTE ---
Pt's daughter concerned as pt is moaning and calling out. Asking for pt to be given something to help her relax-states her mother takes xanax every day. Discussed with PROJECT COACH and pt given ativan 0.25mg IV-slightly calmer after dose. Yuval peterson back
on. Monitoring continues.
[2024-04-18] MEDS: MORPHINE SULFATE 1 MG IV ×2 (05:14→08:19)
--- NOTE | 2024-04-18 05:31 | PTCARENOTE ---
Update given to family at bedside. Pt continues to moan frequently. Discussed with EXHIBIT ELECTRICIAN. Pt given morphine 1mg IV. Will continue to monitor.
[2024-04-18] MEDS: NEO-SYNEPHRINE 1% 260 MG IV (05:52)
--- NOTE | 2024-04-18 07:41 | W.PN.INTV ---
Today's Communication / Plan
Recommendations
Unfortunately, most of the system organ failure
Maxed out on pressors
Family would like to focus on comfort
DNR as of 04/17
Awaiting additional family members arrival prior to focus on comfort
Assessment
-
83-year-old female intermediate resident with complex medical history including hypertension, coronary disease with stent, AAA repair, atrial fibrillation/pacemaker, history of heart failure who presents with hypoglycemia, hypotension, suspected
sepsis and mental status changes. Patient required IV fluids, pressors, antibiotics, admitted to ICU for further management
Hypotension, sepsis
Possibly secondary to UTI
Hypothermia
Bradycardia
Acute renal insufficiency
Hyponatremia/hyperkalemia
Elevated lactate, metabolic acidosis
Conditions present prior to admission
History of coronary disease/PCI
[facility] March 2024
AAA repair
Atrial fibrillation, pacemaker
History of heart failure
History of stroke April 2023
History of falls
group home resident
Plan/recommendations
At this time, patient remains critically ill, progressive multisystem organ failure
Coagulopathy, renal failure, liver failure, severe acidemia
Persistently elevated lactate
Family has requested DNR as of 04/09 8 PM
Remains on maximal support
Reviewed with multiple family members at bedside and outside of the room, son/daughter
Unfortunately, is imminent and family states they would like to focus on comfort
Continue with intermittent morphine
Maintain current therapy as family is waiting for additional family members
They are aware that is imminent
Continue with supportive care and transition to comfort although I relayed to family that patient would likely pass within the next 24 hours if not sooner
Emotional support provided
Reviewed at length with critical care nursing, respiratory care, primary service
Updated son/daughter at bedside
TCCT 31 min
Subjective Dataa
Subjective Data
Date of Service:
Date of Service: April 18, 2024
Subjective:
Patient remains critically ill. Progressive multisystem organ failure, maxed out on pressors. Overnight, family has requested to focus on comfort. Given few doses of morphine. Patient is DNR
Objective Data
Data Reviewed
Vital Signs / I&O / Oxygen:
Vital Signs
Temp Pulse Resp BP Pulse Ox
96.7 F L 72 30 94/67 61
04/18/24 07:00 04/18/24 06:00 04/18/24 06:00 04/18/24 06:00 04/17/24 22:45
Intake and Output
04/17/24 04/18/24 04/19/24
06:59 06:59 06:59
Intake Total 4333.1 / 4333.1
Output Total 4 / 4
Balance 4329.1 / 4329.1
SaO2 61
Nasal Cannula flow liters per 6
minute
Physical Exam
General: Comfortable (Occasionally moaning)
HEENT: Normocephalic
Cardiovascular: S1-S2, Regular Rhythm and Murmur (n)
Respiratory: Wheeze (n), Crackles, Rhonchi (n) and Other (Agonal breathing)
GI: Soft
Neurology: Lethargic (Moaning occasionally)
Skin: Jaundice (n) and Rash (n)
Labs/Micro/Reports
Lab Data
04/18/24 03:12
04/18/24 03:12
Laboratory Results
04/17/24 04/17/24 04/18/24
08:25 11:27 03:12
PT 25.1 H 37.2 H
INR 2.22 3.73
APTT 46.6 H 57.8 H
pH 7.15 L*
pCO2 20 L
pO2 186 H
HCO3 7.0 L*
O2 Delivery Level
04/18/24
06:11
PT
INR
APTT
pH Cancelled
pCO2 Cancelled
pO2 Cancelled
HCO3 Cancelled
O2 Delivery Level Cancelled
Microbiology
04/17/24 09:43 Nasal Swab Influenza Types A & B (MELLO) - Final
Negative for Influenza A & B, NAAT
Negative results must be combined with clinical observations
and patient history.
Nucleic Acid Amplification test (NAAT)performed on the
[employer] platform.
[2024-04-18] MEDS: HEPARIN SC (08:12)
[2024-04-18] MEDS: PROTONIX IV 40 MG IV (08:12)
[2024-04-18] MEDS: NSS (PRESERVATIVE FREE) 10 ML IV (08:13)
--- NOTE | 2024-04-18 08:32 | PHA.VAN.FU ---
Vancomycin Assessment / Plan
- Assessment
Renal Function: SCR Increasing
WBC's are: Trending Up
In the past 24 hrs, patient has been: Hypothermic
Concomitant Antimicrobials: CEFEPIME
- Assessment - Therapeutic Drug Monitoring
Random Level: 19.2
- Dosing Plan
Dosing by Level: Hold off on dosing today
- Monitoring Plan
Random Level: 04/19 IN AM
- Follow Up
Pharmacy will continue to follow.
Vancomycin Follow UP
- -
Patient Age: 83
Patient Sex: Female
Vancomycin Day #: 2
Indication: Other
Requesting Provider: DR. MORENO
Pertinent Antimicrobial Allergies:
SULFA=UNKNOWN
Height / Weight:
Height 5 ft 3 in
Actual Weight 87.5 kg
IBW in k.4
- Vital Signs / Lab Results
Temp Pulse Resp BP Pulse Ox
96.7 F L 72 30 94/67 61
04/18/24 07:00 04/18/24 06:00 04/18/24 06:00 04/18/24 06:00 04/17/24 22:45
Lab Results - Hematology
04/17/24 04/18/24
08:25 03:12
WBC 9.1 13.7 H
Lab Results - Chemistry
04/17/24 04/17/24 04/17/24
08:25 09:43 17:36
BUN Cancelled 48 H 44 H
Creatinine Cancelled 2.5 H 2.5 H
Estimated Creat Clear Cancelled 18 18
Albumin Cancelled 3.0 L 2.8 L
04/17/24 04/18/24
21:59 03:12
BUN 45 H 47 H
Creatinine 2.6 H 2.8 H
Estimated Creat Clear 17 16
Albumin 3.5 3.2 L
04/17/24 04/17/2404/17/24
08:25 14:00 17:36
Lactic Acid 10.0 H* 10.9 H* 11.7 H*
04/17/24 04/17/24 04/18/24
20:59 21:59 03:12
Lactic Acid Cancelled 11.9 H* 11.8 H*
Lab Results - Urine
04/17/24 04/17/24
08:25 17:44
Urine Nitrite (Reflex) Negative Cancelled
Leukocyte Esterase Rfl 2+ A Cancelled
Ur Squamous Epith Cells
Microbiology Results
04/17/24 09:43 Influenza Types A & B (MELLO) - Final
Nasal Swab Negative for Influenza A & B, NAAT
Negative results must be combined with clinical observations
and patient history.
Nucleic Acid Amplification test (NAAT)performed on the
[employer] platform.
Therapeutic Drug Monitoring
Random Vancomycin 19.2 ug/ml 04/18/24 03:12
--- NOTE | 2024-04-18 08:43 | W.PN.HOSP.TC ---
Addendum entered and electronically signed by Allegra Gonzalez MD 04/18/24 16:37:
total 'DC' time 50 min
Original Note:
Today's Communication/Plan
-
see A/P
Assessment / Plan
Assessment / Plan
HPI: 83-year-old female, no prior record here, with past medical history of prior stroke, asthma/COPD with chronic hypoxic respiratory failure on 2L NC, hypertension, hyperlipidemia, CHF, A-fib on Eliquis, from [facility] rehab; p/w change in
mental status and was noted hypoglycemia by EMS (blood glucose of 32 and was given D10 bolus with some improvement).
She is too confused to provide meaningful history. Apparently baseline AOx3 per daughter at bedside.
History from ER note: Pt apparently had been at SNF in late February and was discharged home in early March. She was unfortunately hospitalized at [facility] for COPD exacerbation initially, hospital course complicated by AL
requiring stent.
She returned to [facility] on 04/02 and since that time has had multiple issues including bilateral lower leg cellulitis requiring treatment with Keflex� she is currently on Keflex and is set to take this antibiotic until 04/22/2024.
Apparently since 04/13/2024 her blood pressures have been running low, and usp has been holding blood pressure medications due to this.
Nursing staff did note that she had a brief visit home on 04/14/2024 during which she was apparently off of her normal oxygen.
Apparently on 04/16/2024, she had syncopal event when they stood her up to get her daily weight. Later in the day, she had a minor slip from a seated position onto her bottom with no apparent injuries or head strike.
On DOA 04/17/2024, when they went to do her morning care, she was noted to be hypotensive, bradycardic, lethargic, and EMS was called.
A/P:
# Shock, presumed septic with hypothermia/hypotension/bradycardic POA
# Lactic acidosis and metabolic acidosis POA
Bicarb drip
Follow panculture
zaragoza CT limited secondary to motion artifact but largely unrevealing
cont current pressor support, Levo, Michael, added vasopressin. Currently max on pressors
Cont empiric Abx Cefepime/vancomycin
ID, Rehabilitation Caseworker on board
# Acute metabolic encephalopathy, likely due to above
Monitor MS
CT head No acute intracranial abnormality noted.
# Elevated and increasing LFT likely shocked liver
# Recent AL s/p PCI
Stat echo 60-65%,
Appreciate Card input
record from [facility] requested
# Likely CARTER
# metabolic acidosis
SCr 2.5 -> 2.8, unknown baseline
Cont bicarb drip
Louise placed in ED for I/O monitoring
Renal on board
Other medical problems
# prior stroke
# asthma/COPD with chronic hypoxic respiratory failure on 2L NC
# hypertension
Now in shock
# hyperlipidemia
# diastolic CHF
# A-fib on Eliquis
# Chronic BL lymphedema with chronic ambulatory dysfunction
# Obesity, BMP 34
DVT ppx: HSQ
Code: DNR DNI
D/w Rehabilitation Caseworker, ID, renal, RN
Extensive discussion with son Ambrose (POA) on the phone. Family aware of critical siltation and is leaning toward withdrawal of care. However, they would like to have other family members to come say goodbye before officially withdrawing care. For
now, cont current management with no escalation of care.
CC time 45 min
Anticipated Discharge: Within 24 hours
Subjective/Interval History
-
Date of Service: April 18, 2024
Objective Data
-
Labs:
Laboratory Results
04/17/24 04/18/24 04/18/24
21:59 03:12 06:11
WBC 13.7 H
Hgb 9.8 L
Hct 33.1 L
Plt Count 126 L
PT 37.2 H
INR 3.73
APTT 57.8 H
HCO3 Cancelled
Sodium 134 L 135
Potassium 5.2 H 5.3 H
Chloride 95 L 95 L
Carbon Dioxide 13 L* 20 L
BUN 45 H 47 H
Creatinine 2.6 H 2.8 H
Glucose 91 76
Calcium 7.8 L 7.6 L
Total Bilirubin 2.2 H 2.3 H
AST 368 H 1164 H*
ALT 118 H 388 H
Alkaline Phosphatase 98 108
Vital Signs:
Vital Signs
Temp Pulse Resp BP Pulse Ox
35.9 C L 72 30 94/67 61
04/18/24 07:00 04/18/24 06:00 04/18/24 06:00 04/18/24 06:00 04/17/24 22:45
I&O
04/17/24 04/18/24 04/19/24
06:59 06:59 06:59
Intake Total 4333.1 / 4333.1
Output Total 4 /
Balance 4329.1 / 4329.1
Review of Systems
-
Unable to obtain full review of systems at this time due to: Acuity
Physical Exam
-
General: Well Developed, Well Nourished, Respiratory Distress and Appears Chronically Ill
HEENT: Normocephalic, Atraumatic, Nose Appears Normal, Ears Appear Normal and Oxygen (NC with NRB )
Respiratory: Clear to Auscultation and Non Labored Respirations; Negative Accessory Resp Muscle Use
Cardiac: Regular Rhythm and S1/S2
GI: Soft, Nontender, Nondistended and Normal Bowel Sounds
Skin: Warm and Dry
Psych: Calm
Data Reviewed
-
CT Scan: Report Reviewed by me
Labs: Labs Reviewed by me
--- NOTE | 2024-04-18 08:57 | W.PN.NEPH.PH ---
Today's Communication / Plan
-
family planning on withdrawal of care
Assessment/Plan
-
Assessment
Hypotension
COPD
CARTER
hyponatremia
hyperkalemia
metabolic acidosis
lactic acidosis
CAD/PCI
AAA repair
edema
Afib/PPM
severe TR
HFpEF
ventral hernia
Plan
d/w hospitalist
events overnight noted, also discussed with RN and credit risk modeler
there is no chance of meaningful recovery
dialysis will not change the clinical course given worsening hypotension
per hospitalist discussion with POA, plan is for withdrawal of care when family arrives
critical care time 35 minutes
-
-
Date of Service: April 18, 2024
CC / HPI / ROS
-
Chief Complaint:
CARTER
History of Present Illness:
critically ill in ICU
on supplemental NC O2, sats ok
remains severely hypotense despite maximum three pressors
CARTER/Cr worse to 2.8
essentially anuric
Lactic acid continues to rise
LFTs rising now
K stable but high 5.3
Review of Systems:
unresponsive
Labs
-
Labs:
WBC 13.7 10^3/uL (4.8-10.8) H 04/18/24 03:12
RBC 3.20 10^6/uL (4.20-5.40) L 04/18/24 03:12
Hgb 9.8 g/dL (12.0-16.0) L 04/18/24 03:12
Hct 33.1 % (37.0-47.0) L 04/18/24 03:12
Plt Count 126 10^3/uL (130-400) L 04/18/24 03:12
Sodium 135 mmol/L (135-145) 04/18/24 03:12
Potassium 5.3 mmol/L (3.5-5.1) H 04/18/24 03:12
Chloride 95 mmol/L (98-107) L 04/18/24 03:12
Carbon Dioxide 20 mmol/L (22-30) L 04/18/24 03:12
BUN 47 mg/dl (7-17) H 04/18/24 03:12
Creatinine 2.8 mg/dL (0.6-1.0) H 04/18/24 03:12
eGFR 16.15 04/18/24 03:12
Glucose 76 mg/dl (70-99) 04/18/24 03:12
Calcium 7.6 mg/dl (8.4-10.2) L 04/18/24 03:12
Phosphorus 8.1 mg/dl (2.5-4.5) H 04/18/24 03:12
War-A-Sisvljkqnqu Pept 6000 pg/ml 04/17/24 09:43
Albumin 3.2 g/dl (3.5-5.0) L 04/18/24 03:12
Physical Exam
-
Vital Signs:
Vital Signs
Temp Pulse Resp BP Pulse Ox
96.7 F L 72 30 94/67 61
04/18/24 07:00 04/18/24 06:00 04/18/24 06:00 04/18/24 06:00 04/17/24 22:45
Cardiovascular:: Regular rate and rhythm
Respiratory:: Bilateral: Coarse and Bilateral: Rales
Lung Excursion:: Normal
Abdomen:: Nontender and Soft
Bowel Sounds:: Normal
Extremity Edema:: +3: Bilateral:
--- NOTE | 2024-04-18 09:29 | W.PN.ID1 ---
Date of Service
Date of Service: April 18, 2024
Today's Communication
Continue antibiotics pending family decision regarding comfort measures.
Assessment / Plan
Clinical sepsis
Leukocytosis
Profound lactic acidosis; persistent
Renal insufficiency
Elevated bilirubin
Transaminitis
Pyuria
Hx CVA
Asthma
COPD chronic respiratory failure; maintained on 2 L O2 nasal cannula
HTN
Dyslipidemia
CHF
A-fib; on Eliquis
Umbilical hernia
LE lymphedema
Recommendations:
Continue with empiric vancomycin and cefepime.
Cefepime dose is appropriate for current estimated creatinine clearance.
Vanco to be dosed by levels.
Monitor white count and temperature curve.
Continue with compressive modalities to the bilateral lower extremities.
Await further culture data to guide further antimicrobial selection and potential de-escalation.
Patient currently critically ill in intensive care unit on pressor therapy. Prognosis guarded.
Chart reviewed, and family to potentially move to comfort measures later today. Await final decision.
����������������������������������������������������������
Chief Complaint
-: Clinical Sepsis
Subjective / Review of Systems
Patient seen and examined. Now on nonrebreather mask. Patient remains on 3 pressors. Overnight, patient has been made DNR DNI.
Vital Signs / Physical Exam
Vital Signs
Vital Signs
Temp Pulse Resp BP Pulse Ox
96.7 F L 72 30 94/67 61
04/18/24 07:00 04/18/24 06:00 04/18/24 06:00 04/18/24 06:00 04/17/24 22:45
Physical Exam
Constitutional: Acutely Ill and Chronically Ill
Cardiovascular: Regular Rate and S1/S2; Negative S3/S4
Pulmonary: Coarse and Other (Moderately labored.)
Gastrointestinal: Soft, Distended and Decreased Bowel Sounds
Extremities: Edema and Cyanosis (Fingers, toes, although warm.)
Skin: Warm and Dry; Negative Rash or Jaundice
Neurological: Other (Minimally responsive)
Objective Data
Lab Data
Lab Results
04/18/24 03:12
04/18/24 03:12
PT 37.2 Sec (11.4-14.6) H 04/18/24 03:12
INR 3.73 04/18/24 03:12
APTT 57.8 Sec (23.4-35.0) H 04/18/24 03:12
Estimated Creat Clear 16 ml/min 04/18/24 03:12
Lactic Acid 11.8 mmol/L (0.7-2.0) H* 04/18/24 03:12
Total Bilirubin 2.3 mg/dl (0.2-1.3) H 04/18/24 03:12
AST 1164 U/L (14-36) H* 04/18/24 03:12
ALT 388 U/L (0-35) H 04/18/24 03:12
Alkaline Phosphatase 108 U/L (38-126) 04/18/24 03:12
Most recent labs reviewed.
Micro Results:
04/17/24 08:31 Blood Culture - Preliminary
Blood/Venous No Growth in 24 hours- Final report to follow
04/17/24 08:31 Blood Culture - Preliminary
Blood/Venous No Growth in 24 hours- Final report to follow
04/17/24 14:00 Blood Culture - Pending
Blood/Venous
04/17/24 14:00 Blood Culture - Pending
Blood/Venous
04/17/24 09:43 Influenza Types A & B (MELLO) - Final
Nasal Swab Negative for Influenza A & B, NAAT
Negative results must be combined with clinical observations
and patient history.
Nucleic Acid Amplification test (NAAT)performed on the
[email or web address] platform.
04/17/24 08:25 Urine Culture - Pending
Urine
Imaging:
04/17/2024 CXR (portable): Low lung volumes noted. Mild bibasilar airspace opacities. No significant pleural effusion and no visualized pneumothorax noted.
04/17/2024 CT (C/A/P): Cardiomegaly noted. Generalized diffuse body wall edema with small volume free fluid in the abdomen. Gallbladder is mildly distended.
Care Review
Plan reviewed with: Physician (Hospitalist)
[2024-04-18] MEDS: LEVOPHED 258 MG IV (11:19)
[2024-04-18] MEDS: SODIUM BICARBONATE 1150 MEQ IV (11:20)
--- NOTE | 2024-04-18 11:41 | CHAP ---
Called by ICU staff for Lauren and family, with a prayer blanket requested. Grandson was alone at bedside - he said Lauren is Voodoo, and agreed that a pediatric hospitalist visit to provide Sacrament of the Sick would be appropriate. I called [facility] with the
request. Meanwhile, we offered prayers from the [employer], commending Lauren to God, giving thanks for her life and love. Additional family members arrived during the prayer. Emotional and spiritual support provided, along with a prayer
blanket, and the assurance of our on-going availability. Fr. Greenberg of [facility] came shortly after.
--- NOTE | 2024-04-18 11:55 | W.PN.UPDATE ---
Update Note
Progress Note Update
Family has opted for comfort measures. Extended family in the room. I offered my condolences about their family member. I offered to reach out to her primary harp maker to inform them of details of care although they were unsure of who she has
been seeing regularly. It is possible that it was [facility] cardiology. We receive records we can reach out as needed. We will sign off for now
--- NOTE | 2024-04-18 12:26 | W.PN.DEATH ---
Pronouncement of
-
Called to see patient to pronounce.
No spontaneous heart tones or respirations noted.
Patient not responsive to verbal stimuli.
Patient is pronounced .
Time of : 11:41
Date of : 04/18/24
Family Notified: Yes (multiple family members at bedside )
[2024-04-18] MEDS: FLEXBUMIN IV (13:04)
--- NOTE | 2024-04-18 14:10 | PTCARENOTE ---
pt in am on max vasopressor support , pt unresponsive , on 6L NC and NREM , unable to obtain 02 sat since admission yesterday , family at bedside and were waiting for several family members to arrive and they have decided to withdraw medications
when they arrive , pastoral care notified and here for emotional support , BP range anywhere from 87/60 to 41/10 , pt agnol breaths all morning , she had a rhythm change at 1050 , her vasopressors off at 1140 as per family request , pt was
pronounced by Dr Gonzalez , time of 11:41
--- NOTE | 2024-04-18 16:26 | W.DCSUMMARY ---
Discharge Summary
Discharge Data
Date of Admission: 04/17/24
Date of Discharge: 04/18/24
-
Pending Results: No
Hospital Course
Principal Diagnosis:
Shock presumed septic with hypothermia/hypotension/bradycardia on admission
Lactic acidosis
Shocked liver
Acute kidney injury with severe metabolic acidosis
Chronic Diagnoses:�
# prior stroke
# asthma/COPD with chronic hypoxic respiratory failure on 2L NC
# hypertension
# hyperlipidemia
# diastolic heart failure
# Atrial fibrillation on Eliquis
# Chronic bilateral lower extremity lymphedema with chronic ambulatory dysfunction
# Obesity, BMI 34
# Recent myocardial infarction status post recent stent from [facility]
Consultations:�
Mortar Worker
Cardiology
Nephrology
Infectious disease
Procedures:�
Central line and A-line placement
Clinical course:�
This is a 83-year-old female, who was sent in from local [facility] for change in mental status and hypoglycemia noted by EMS.
Apparently her Accu-Chek was at 32 and she was given D10 bolus with improvement in her blood sugar.
She was found to be extremely confused in the emergency room with shock, presumed septic.
Problem 1:
Shock presumed septic with hypothermia/hypotension/bradycardia on admission.
This was associated with Lactic acidosis, shocked liver, acute kidney injury and severe metabolic acidosis.
Pressors were started and at the time of expiration she had been maintained on Levophed, phenylephrine and vasopressin.
She also received bicarb drip for her metabolic acidosis.
[facility] culture results have not returned at the time of her expiration.
Her [facility] CT of the chest, abdomen and pelvis were limited due to motion artifact but they were largely unrevealing.
She was also covered with empiric antibiotics cefepime and vancomycin.
Despite aggressive management and treatment, she continued to decompensate clinically.
She on 04/18/2024 and the time of was at 11:41 AM
Her family with bedside during pronouncement.
Discharge Plan
-
Patient Disposition:
Date/Time
Date/Time: 04/18/24 11:41
Discharge Date and Time
Discharge Date/Time: 04/18/24 11:41
Print Language: ARABIC
== END 2024-04-18 11:41 | disposition expired | DRG 871 ==
LOC: ICU 10:37
PROVIDERS: Emergency Medicine; Nurse Practitioner Family; ADMITTING PHYSICIAN Internal Medicine; CONSULT PHYSICIAN Internal Medicine Cardiovascular Disease; CONSULT PHYSICIAN Internal Medicine Critical Care Medicine; CONSULT PHYSICIAN Internal Medicine Infectious Disease; CONSULT PHYSICIAN Specialist; EMERGENCY PHYSICIAN Emergency Medicine; FAMILY PHYSICIAN Student in an Organized Health Care Education/Training Program
DX: A41.9 Sepsis, unspecified organism (principal); G93.41 Metabolic encephalopathy; R65.21 Severe sepsis with septic shock; K72.00 Acute and subacute hepatic failure without coma; E87.20 Acidosis, unspecified; J96.11 Chronic respiratory failure with hypoxia; J44.1 Chronic obstructive pulmonary disease with (acute) exacerbation; I50.30 Unspecified diastolic (congestive) heart failure; I48.21 Permanent atrial fibrillation; N17.9 Acute kidney failure, unspecified; E87.1 Hypo-osmolality and hyponatremia; J98.11 Atelectasis; Z11.52 Encounter for screening for COVID-19; E78.5 Hyperlipidemia, unspecified; I11.0 Hypertensive heart disease with heart failure; Z79.01 Long term (current) use of anticoagulants; E66.9 Obesity, unspecified; E87.5 Hyperkalemia; Z86.73 Personal history of transient ischemic attack (TIA), and cerebral infarction without residual deficits; Z68.34 Body mass index [BMI] 34.0-34.9, adult; I08.1 Rheumatic disorders of both mitral and tricuspid valves; I25.10 Atherosclerotic heart disease of native coronary artery without angina pectoris; I25.2 Old myocardial infarction; I89.0 Lymphedema, not elsewhere classified; K42.9 Umbilical hernia without obstruction or gangrene; K43.9 Ventral hernia without obstruction or gangrene; Z99.81 Dependence on supplemental oxygen; Z95.5 Presence of coronary angioplasty implant and graft; Z95.1 Presence of aortocoronary bypass graft; Z95.0 Presence of cardiac pacemaker; E16.2 Hypoglycemia, unspecified; Z66 Do not resuscitate
CPT/HCPCS: 36556; 51702; 70450; 71045; 71260; 74177; 80048; 80053; 80076; 80202; 81003; 81015; 82248; 82533; 82570; 82805; 82962; 83605; 83735; 83880; 84100; 84300; 84439; 84443; 85014; 85018; 85025; 85610; 85730; 86850; 86900; 86901; 87040; 87086; 87502; 87811; 93005; 93306; 96365; 96366; 96367; 96375; 99291; P9047; Q9967